=== PATIENT | male | born 1955 | race Caucasian/White ===

== ENCOUNTER 2017-06-25 07:39 | Day surgery (SDC) | payer OTHER ==
[~2017-06-25] VITALS: Ht 177.8 cm; Wt 106.7 kg
[~2017-06-25 07:39] MED LIST: ASCO500; ASPI81CH; ATOR20; CITA20; FISH OIL 1,0001 EAC1; LEVSOD125; LISI20; METF500; PIOG30
== END 2017-06-25 10:00 | disposition home or self-care (01) ==
LOC: ORSCSDS 07:39
PROVIDERS: Internal Medicine Gastroenterology
PROC: 0DBN8ZX Excision of Sigmoid Colon, Via Natural or Artificial Opening Endoscopic, Diagnostic (ICD-10-PCS; principal; 2017-06-25 09:00)
DX: Z12.11 Encounter for screening for malignant neoplasm of colon (principal); Z86.010 Personal history of colon polyps; K57.30 Diverticulosis of large intestine without perforation or abscess without bleeding; E11.9 Type 2 diabetes mellitus without complications; E78.5 Hyperlipidemia, unspecified; E03.9 Hypothyroidism, unspecified; F32.9 Major depressive disorder, single episode, unspecified; E66.01 Morbid (severe) obesity due to excess calories; Z68.35 Body mass index [BMI] 35.0-35.9, adult; Z87.891 Personal history of nicotine dependence; Z79.82 Long term (current) use of aspirin; Z79.84 Long term (current) use of oral hypoglycemic drugs; Z79.899 Other long term (current) drug therapy
CPT/HCPCS: 82947; 88305; J0330; J1980; J2405

== ENCOUNTER → 2021-08-03 | Outpatient (CLI) | payer BC ==
[2021-08-03 15:31] LABS: BASOPHILS ABSOLUTE AUTO 0.03 K/mm3 (0.00-0.23); BASOPHILS PERCENT AUTO 0 % (0-2); EOSINOPHILS PERCENT AUTO 1 % (0-6); Hematocrit 39.4 % (37.0-53.0); Hemoglobin 13.3 g/dL (13.5-17.5); IMMATURE GRAN ABSOLUTE AUTO 0.03 K/mm3 (0.00-0.10); IMMATURE GRAN PERCENT AUTO 0 % (0-1); LYMPHOCYTES ABSOLUTE AUTO 0.86 K/mm3 (0.84-5.20); LYMPHOCYTES PERCENT AUTO 8 % (21-46); MONOCYTES ABSOLUTE AUTO 1.22 K/mm3 (0.16-1.47); MONOCYTES PERCENT AUTO 11 % (4-13); Mean Corpuscular HGB 28.9 pg (26.0-34.0); Mean Corpuscular HGB Conc 33.8 g/dL (31.5-36.5); Mean Corpuscular Volume 86 fL (80-100); Mean Platelet Volume 8.4 fL (9.1-12.4); NEUTROPHILS ABSOLUTE AUTO 8.45 K/mm3 (1.96-9.15); NEUTROPHILS PERCENT AUTO 79 % (41-73); Platelet Count 568 K/mm3 (150-400); RDW Coefficient Variation 13.2 % (11.7-14.2); RDW Standard Deviation 41.2 fL (35.1-46.3); White Blood Cell Count 10.69 K/mm3 (4.00-11.30)
[2021-08-03 15:43] LABS: Bun/Creatinine Ratio 32.5 (12.0-20.0); Calcium, Blood 9.3 mg/dL (8.5-10.1); Creatinine, Blood 1.54 mg/dL (0.60-1.20); Potassium, Blood 4.5 mmol/L (3.5-5.5); Uric Acid, Blood 9.4 mg/dL (3.5-7.2)
== END | disposition home or self-care (01) ==
LOC: LAB 15:27 → LAB SHORT 15:27
PROVIDERS: Chiropractor
DX: M25.461 Effusion, right knee (principal)
CPT/HCPCS: 80048; 84550; 85025

== ENCOUNTER → 2021-08-23 | Outpatient (CLI) | payer BC ==
[2021-08-24 09:20] LABS: Stool Occult Bld Immuno 1 Negative (NEGATIVE)
== END | disposition home or self-care (01) ==
LOC: LAB 15:14 → LAB SHORT 15:14
PROVIDERS: Internal Medicine
DX: D53.9 Nutritional anemia, unspecified (principal)
CPT/HCPCS: 82274

== ENCOUNTER → 2022-03-18 | Outpatient (CLI) | payer OTHER | END | disposition home or self-care (01) | LOC: LAB 07:40 → LAB SHORT 07:40 → PLD 07:40 | DX: L60.2 Onychogryphosis (principal); B35.1 Tinea unguium | CPT/HCPCS: 88305; 88312 ==

== ENCOUNTER 2023-04-18 06:10 | Day surgery (SDC) | payer OTHER ==
[~2023-04-18] VITALS: Ht 177.8 cm; Wt 105.0 kg
[~2023-04-18 06:10] MED LIST changes: +ALLO100 PO; -ASPI81CH; +Aspir 8181 MG PO; -CITA20; +CITA20 PO; +LEVOTHYROXINE125 MC9 PO; -LEVSOD125; +Lisinopril2.5 MG; -METF500; +METF500 PO; +MOBIC15 MG PO
[2023-04-18] MEDS ORDERED: LISINOPRIL 30 MG (06:47)
--- NOTE | 2023-04-18 07:30 | NUR ---
04/18/23 0730 Lulú Estes TIMEOUT COMPLETED FOR NERVE BLOCK
--- NOTE | 2023-04-18 08:09 | NUR ---
04/18/23 0809 Ritu Adames FIRST DOSE OF TXA STARTED AT 0744.
[2023-04-18 10:32] VITALS: BP 129/71
== END 2023-04-18 11:20 | disposition home or self-care (01) ==
LOC: ORSCSDS 06:10
PROVIDERS: Podiatrist Foot & Ankle Surgery
PROC: 0SSF05Z Reposition Right Ankle Joint with External Fixation Device, Open Approach (ICD-10-PCS; principal; 2023-04-18 07:30)
PROC: 0L8N0ZZ Division of Right Lower Leg Tendon, Open Approach (ICD-10-PCS; principal; 2023-04-18 07:30)
PROC: 0MQQ0ZZ Repair Right Ankle Bursa and Ligament, Open Approach (ICD-10-PCS; principal; 2023-04-18 07:30)
DX: M19.071 Primary osteoarthritis, right ankle and foot (principal); I10 Essential (primary) hypertension; E03.9 Hypothyroidism, unspecified; E11.9 Type 2 diabetes mellitus without complications; E66.9 Obesity, unspecified; Z68.33 Body mass index [BMI] 33.0-33.9, adult; Z79.82 Long term (current) use of aspirin; Z79.84 Long term (current) use of oral hypoglycemic drugs; Z79.899 Other long term (current) drug therapy
CPT/HCPCS: 82947; C1713; C1776; J0171; J0690; J0735; J1100; J1885; J2001; J2250; J2405; J2704; J2795; J3010; J7120

== ENCOUNTER 2023-10-09 07:28 | Day surgery (SDC) | payer OTHER ==
[~2023-10-09] VITALS: Ht 177.8 cm; Wt 105.2 kg
[2023-10-09] VITALS (10 sets, daily range): BP systolic 45–134; BP diastolic 23–119
[~2023-10-09 07:28] MED LIST changes: -ATOR20; +ATOR20 PO; +LISINOPRIL 30 MG PO; +Lactated Ringer's 1,000 ML IV SCH
[2023-10-09] MEDS ORDERED: propofoL 40 ML IV ONE (08:41)
--- NOTE | 2023-10-09 08:41 | NUR ---
Ambulatory in Day Surgery. History, Chart, Medications and Allergies reviewed before start of procedure. Lungs clear T/O to Auscultation. Patient confirms NPO status and agrees with scheduled surgery. Patient States Post-Procedure ride home has been arranged.
--- NOTE | 2023-10-09 08:53 | NUR ---
10/09/23 0853 Dallas Albarran HISTORY, CHART, MEDICATIONS AND ALLERGIES REVIEWED BEFORE START OF PROCEDURE. PATIENT CONFIRMS NPO STATUS AND AGREES WITH SCHEDULED PROCEDURE. 3-LEAD EKG REVIEWED WITH PHYSICIAN PRIOR TO START OF PROCEDURE. MONITOR INTACT WITH CONTINUOUS PULSE OXIMETRY,CAPNOGRAPHY, 3-LEAD EKG, INTERMITTENT BP. SUPPLEMENTAL O2 TO BE TITRATED THROUGHOUT PROCEDURE TO MAINTAIN O2 SATURATION ABOVE 90%. PATIENT DETERMINED TO BE ASA APPROPRIATE FOR PROPOFOL SEDATION PRIOR TO START OF PROCEDURE BY DR. LEO.
--- NOTE | 2023-10-09 09:17 | NUR ---
PT TO DAY SURGERY STEP DOWN FROM COLONOSCOPY; BEDSIDE REPORT RECEIEVED. PT AWAKE, ALERT AND ORIENETED; ABLE TO MOVE SELF IN BED. VSS. PT HAS NO COMPLAINTS AT THIS TIME
--- NOTE | 2023-10-09 09:25 | NUR ---
Discharge instructions reviewed with patient. Patient verbalizes understanding. Copy given to patient to take home. Patient States Post-Procedure ride home has been arranged.
--- NOTE | 2023-10-09 09:40 | NUR ---
Patient up to Ambulate independently. Gait steady. Discharged via wheelchair to private car for ride home.
[2023-10-14] MEDS ORDERED: CALCIUM PO (13:56)
[2023-10-14] MEDS ORDERED: FISH OIL PO (13:56)
== END 2023-10-09 09:41 | disposition home or self-care (01) ==
LOC: ORSCMMR 07:28 → ORD 08:30 → ORSCMMR 09:41
PROVIDERS: Internal Medicine Gastroenterology
PROC: 0DBH8ZX Excision of Cecum, Via Natural or Artificial Opening Endoscopic, Diagnostic (ICD-10-PCS; principal; 2023-10-09 08:30)
PROC: 0DBK8ZX Excision of Ascending Colon, Via Natural or Artificial Opening Endoscopic, Diagnostic (ICD-10-PCS; principal; 2023-10-09 08:30)
PROC: 0DBM8ZX Excision of Descending Colon, Via Natural or Artificial Opening Endoscopic, Diagnostic (ICD-10-PCS; principal; 2023-10-09 08:30)
PROC: 0DBP8ZX Excision of Rectum, Via Natural or Artificial Opening Endoscopic, Diagnostic (ICD-10-PCS; principal; 2023-10-09 08:30)
DX: Z12.11 Encounter for screening for malignant neoplasm of colon (principal); Z86.010 Personal history of colon polyps; D12.0 Benign neoplasm of cecum; D12.2 Benign neoplasm of ascending colon; K63.5 Polyp of colon; K62.1 Rectal polyp; E11.9 Type 2 diabetes mellitus without complications; E78.00 Pure hypercholesterolemia, unspecified; I10 Essential (primary) hypertension; E03.9 Hypothyroidism, unspecified; F32.A Depression, unspecified; M10.9 Gout, unspecified; Z79.84 Long term (current) use of oral hypoglycemic drugs; Z79.899 Other long term (current) drug therapy
CPT/HCPCS: 82947; 88305; J2704; J7120

== ENCOUNTER 2024-05-20 06:07 | Day surgery (SDC) | payer OTHER ==
[2024-05-20] VITALS (12 sets, daily range): BP systolic 105–149; BP diastolic 62–105
[~2024-05-20] VITALS: Ht 177.8 cm; Wt 102.8 kg
[~2024-05-20 06:07] MED LIST changes: +CALCIUM CARBON500 M1 PO; +FISH OIL PO; -LISINOPRIL 30 MG PO; -Lactated Ringer's 1,000 ML IV SCH; +MULVITA PO; +TRULICITY3 MG/0.5 M SC; +Zestril30 MG PO
[2024-05-20] MEDS ORDERED: Ropivacaine 0.5% HCl/Pf 123.125 MG,EPINEPHrine HCL 0.25 MG,Ketorolac Tromethamine 15 MG... INFIL SCH (06:20)
[2024-05-20] MEDS ORDERED: OxyCODONE HCL 10 MG TABCR PO SCH (06:20)
[2024-05-20] MEDS ORDERED: Tranexamic Acid 1,000 MG in NS 100 ML IV SCH (06:20)
[2024-05-20] MEDS ORDERED: Acetaminophen 500 MG Tab PO SCH ×2 (06:20→08:00)
[2024-05-20] MEDS ORDERED: CeFAZolin Sodium 2,000 MG in NS 100 ML IV SCH ×2 (06:20→15:45)
[2024-05-20] MEDS ORDERED: Chlorhexidine Mouth Care 15 ML UDC MT SCH (06:20)
[2024-05-20] MEDS ORDERED: Lactated Ringer's 1,000 ML IV SCH ×2 (06:20→07:50)
--- NOTE | 2024-05-20 06:56 | NUR ---
INTO [facility]. PT REPORTS 04/30 LEFT HIP PAIN. HISTORY AND ALLERGIES REVIEWED.BP 141/105-PT HAS NOT TAKEN HIS LISINOPRIL SINCE 05/11/24.LUNGS CLEAR. NPO STATUS CONFIRMED.CHLOHEXIDINE SHOWER AND WIPE X 2.
[2024-05-20] MEDS ORDERED: CeFAZolin Sodium 2,000 MG VIAL ONE (07:01)
[2024-05-20] MEDS ORDERED: Midazolam HCl 1MG / ML 2ML Vial ONE (07:09)
[2024-05-20] MEDS ORDERED: FentaNYL Citrate 50 MCG/ML 2 ML Injection ONE (07:09)
[2024-05-20] MEDS ORDERED: Bupivacaine 0.75%/Dext 8.25% 2 ML Amp IT ONE (07:20)
[2024-05-20] MEDS ORDERED: propofoL 100 ML IV ONE (07:20)
[2024-05-20] MEDS ORDERED: Metoclopramide HCl 5MG / ML 2ML Vial IV PRN (07:45)
[2024-05-20] MEDS ORDERED: Prochlorperazine Edisylate 10 mg Vial IV PRN (07:50)
[2024-05-20] MEDS ORDERED: Ondansetron HCl 2 MG / ML 2ML Vial IV PRN (07:50)
[2024-05-20] MEDS ORDERED: Bisacodyl 10 MG Supp PR PRN (07:50)
[2024-05-20] MEDS ORDERED: OxyCODONE HCL 5 MG TAB PO PRN ×2 (07:50)
[2024-05-20] MEDS ORDERED: Magnesium Hydroxide Conc 10 ML UDC PO PRN (07:50)
[2024-05-20] MEDS ORDERED: HYDROmorphone HCl/Pf 1MG SYR IV PRN ×2 (07:55→08:50)
[2024-05-20] MEDS ORDERED: FLU VACC TS2024-25(6MOS UP)/PF 45 MCG/0.5 ML SYRINGE IM SCH (07:55)
[2024-05-20] MEDS ORDERED: Promethazine HCl 25 MG Tab PO PRN (07:55)
[2024-05-20] MEDS ORDERED: DiphenhydrAMINE HCL 25 MG Cap PO PRN (08:00)
[2024-05-20] MEDS ORDERED: Ondansetron HCl 2 MG / ML 2ML Vial ONE (08:07)
[2024-05-20] MEDS ORDERED: Dexamethasone Sod Phos 10 MG/ML 1ML VIAL ONE (08:07)
[2024-05-20] MEDS ORDERED: Phenylephrine HCl 100 MCG/ML-NS 10MLSYR (1MG/10ML) ONE (08:22)
[2024-05-20] MEDS ORDERED: FentaNYL Citrate 50 MCG/ML 2 ML Injection IV PRN ×3 (08:45→08:50)
[2024-05-20] MEDS ORDERED: Lisinopril 5 MG Tab PO SCH (09:00)
[2024-05-20] MEDS ORDERED: Citalopram Hydrobromide 20 MG Tab PO SCH (09:00)
[2024-05-20] MEDS ORDERED: Allopurinol 100 MG Tab PO SCH (09:00)
[2024-05-20] MEDS ORDERED: MetFORMIN HCl 500 mg PO SCH (09:00)
[2024-05-20] MEDS ORDERED: Calcium Carbonate 1,250 MG TABLET PO SCH (09:00)
[2024-05-20] MEDS ORDERED: Atorvastatin 10 MG Tab PO SCH (09:00)
[2024-05-20] MEDS ORDERED: Docusate Sodium 100 MG Cap PO SCH (09:00)
[2024-05-20] MEDS ORDERED: Multivitamins 1 Tab PO SCH (09:00)
--- NOTE | 2024-05-20 11:12 | NUR ---
POST OP S/P L NAYAN. SPINAL STILL INTACT AND PT HAS DECREASED SENSATION. CAP REFILL <3 SECONDS AND PEDAL PULSES STRONG BILAT. PT DENIES PAIN. AWAKE, ORIENTED, AND PLEASANT. L HIP WITH AQUACEL DRESSING IS [facility] WITH POLAR PACK IN PLACE. PT VIPUL SIPS OF WATER AND JELLO. VSS. AT BEDSIDE FOR SUPPORT. CALL LIGHT WITHIN REACH. PT EDUCATED ON TREATMENT PLAN AND VERBALIZED AN UNDERSTANDING.
[2024-05-20] MEDS ORDERED: Insulin Regular 100 UNIT/ML 10ML Vial SC SCH (11:30)
[2024-05-20] MEDS ORDERED: Ketorolac Tromethamine 15mg Vial IV SCH (12:00)
--- NOTE | 2024-05-20 16:44 | NUR ---
DISCHARGE PT AND EDUCATED ON AND RECEIVED PRINTED DISCHARGE INSTRUCTIONS AND VERBALIZED AN UNDERSTANDING. IV DC'D. PT CLEARED PHYSICAL THERAPY. VOIDING SPONTANEOUSLY, VIPUL PO, AND PAIN CONTROLLED. PT GIVEN EXTRA AQUACEL DRESSINGS AND REPORTS FILLING RX'S. PT GATHERING ALL PERSONAL BELONGINGS AND [facility].
[2024-05-21] MEDS ORDERED: Levothyroxine Sodium 0.125 MG Tab PO SCH (06:00)
[2024-05-21] MEDS ORDERED: Aspirin 81 MG Chew PO SCH (09:00)
[2024-05-26] MEDS ORDERED: Misc. Injectable SC SCH (08:20)
== END 2024-05-20 17:05 | disposition home or self-care (01) ==
LOC: ORSCMMR 06:07 → ORD 07:30 → ORSCMMR 07:30 → SURS 10:17 → ORSCMMR 17:05
PROVIDERS: Orthopaedic Surgery
PROC: 0SRB0JZ Replacement of Left Hip Joint with Synthetic Substitute, Open Approach (ICD-10-PCS; principal; 2024-05-20 07:30)
DX: M16.12 Unilateral primary osteoarthritis, left hip (principal); Z96.641 Presence of right artificial hip joint; I10 Essential (primary) hypertension; E11.9 Type 2 diabetes mellitus without complications; E03.9 Hypothyroidism, unspecified; Z79.84 Long term (current) use of oral hypoglycemic drugs; Z79.899 Other long term (current) drug therapy; Z79.82 Long term (current) use of aspirin; Z79.85 Long-term (current) use of injectable non-insulin antidiabetic drugs; E66.9 Obesity, unspecified; Z68.33 Body mass index [BMI] 33.0-33.9, adult
CPT/HCPCS: 72170; 82947; 97110; 97116; 97162; A9270; C1776; J0171; J0690; J0735; J1100; J1815; J1885; J2250; J2371; J2405; J2704; J2795; J3010; J7120

== ENCOUNTER 2024-07-30 09:32 | Day surgery (SDC) | payer OTHER ==
[~2024-07-30] VITALS: Ht 177.8 cm; Wt 103.1 kg
[~2024-07-30 09:32] MED LIST changes: +Bupivacaine 0.5% W/EPI 1:200000 SDV 30 ML Vial ONE; +Midazolam HCl 1MG / ML 2ML Vial ONE; +propofoL 20 ML IV ONE
[2024-07-30] MEDS ORDERED: CeFAZolin Sodium 2,000 MG VIAL ONE (09:48)
[2024-07-30] MEDS ORDERED: TRULICITY3 MG/0.5 M SQ (10:20)
[2024-07-30] MEDS ORDERED: Ondansetron HCl 2 MG / ML 2ML Vial ONE (10:32)
[2024-07-30] MEDS ORDERED: Dexamethasone Sod Phos 10 MG/ML 1ML VIAL ONE (10:32)
[2024-07-30] MEDS ORDERED: Ketorolac Tromethamine 30mg Vial ONE (10:32)
[2024-07-30] MEDS ORDERED: Lactated Ringer's 1,000 ML IV ONE ×2 (10:37→12:00)
[2024-07-30] MEDS ORDERED: FentaNYL Citrate 50 MCG/ML 2 ML Injection ONE (10:40)
[2024-07-30 11:28] VITALS: BP 124/82
--- NOTE | 2024-07-30 11:44 | NUR ---
07/30/24 1144 LOVELY QUISPE IN AT BEDSIDE. PT VERY TALKATIVE.
== END 2024-07-30 12:10 | disposition home or self-care (01) ==
LOC: ORSCSDS 09:32
PROVIDERS: Podiatrist Foot & Ankle Surgery
PROC: 0SGP04Z Fusion of Right Toe Phalangeal Joint with Internal Fixation Device, Open Approach (ICD-10-PCS; principal; 2024-07-30 10:45)
DX: M20.41 Other hammer toe(s) (acquired), right foot (principal); I10 Essential (primary) hypertension; E11.9 Type 2 diabetes mellitus without complications; E03.9 Hypothyroidism, unspecified; G47.33 Obstructive sleep apnea (adult) (pediatric); E66.9 Obesity, unspecified; Z68.32 Body mass index [BMI] 32.0-32.9, adult; Z79.84 Long term (current) use of oral hypoglycemic drugs; Z79.899 Other long term (current) drug therapy; Z79.82 Long term (current) use of aspirin
CPT/HCPCS: 82947; C1713; J0690; J1100; J1885; J2250; J2405; J2704; J3010; J7120

== ENCOUNTER → 2024-09-08 | Outpatient (CLI) | payer OTHER ==
[~2024-09-08] MED LIST changes: -Bupivacaine 0.5% W/EPI 1:200000 SDV 30 ML Vial ONE; -Midazolam HCl 1MG / ML 2ML Vial ONE; +TRULICITY3 MG/0.5 M SQ; -propofoL 20 ML IV ONE
[2024-09-08 15:09] LABS: Microalb/Creat Ratio UR, Rand 18.177 mg/g (0.000-30.000); Microalbumin, Random Urine 36.9 mg/L (0.000-20.000)
== END ==
LOC: LAB SHORT 12:00 → LAB 12:00
PROVIDERS: Internal Medicine
DX: E11.69 Type 2 diabetes mellitus with other specified complication (principal); E78.2 Mixed hyperlipidemia
CPT/HCPCS: 82043; 82570

== ENCOUNTER → 2024-09-17 | Outpatient (CLI) | payer OTHER ==
[~2024-09-17] MED LIST changes: +Amoxicillin500 MG PO; +Ketoconazole15 GM TP; +LISINOPRIL2.5 MG PO; +OXAYDO5 M1 PO; -TRULICITY3 MG/0.5 M SQ
[2024-09-17 09:01] LABS: BASOPHILS ABSOLUTE AUTO 0.04 K/mm3 (0.00-0.23); BASOPHILS PERCENT AUTO 0 % (0-2); EOSINOPHILS PERCENT AUTO 0 % (0-6); Hematocrit 41.8 % (37.0-53.0); Hemoglobin 13.7 g/dL (13.5-17.5); IMMATURE GRAN PERCENT AUTO 1 % (0-1); LYMPHOCYTES ABSOLUTE AUTO 1.11 K/mm3 (0.84-5.20); LYMPHOCYTES PERCENT AUTO 7 % (21-46); MONOCYTES PERCENT AUTO 7 % (4-13); Mean Corpuscular HGB 26.1 pg (26.0-34.0); Mean Corpuscular HGB Conc 32.8 g/dL (31.5-36.5); Mean Corpuscular Volume 80 fL (80-100); Mean Platelet Volume 9.3 fL (9.1-12.4); NEUTROPHILS ABSOLUTE AUTO 14.63 K/mm3 (1.96-9.15); NEUTROPHILS PERCENT AUTO 86 % (41-73); Platelet Count 305 K/mm3 (150-400); RDW Coefficient Variation 16.8 % (11.7-14.2); RDW Standard Deviation 47.5 fL (35.1-46.3); Red Blood Cell Count 5.24 M/mm3 (4.30-5.90); White Blood Cell Count 16.98 K/mm3 (4.00-11.30)
[2024-09-17 09:11] LABS: Albumin, Blood 3.7 g/dL (3.4-5.0); Albumin/Globulin Ratio 0.9 (0.8-1.8); Bilirubin, Total 0.7 mg/dL (0.1-1.0); Bun/Creatinine Ratio 21.3 (12.0-20.0); Calcium, Blood 9.1 mg/dL (8.5-10.1); Creatinine, Blood 1.41 mg/dL (0.60-1.20); Globulin, Blood 4.2 g/dL (2.2-4.0); Potassium, Blood 4.1 mmol/L (3.5-5.5); Total Protein, Blood 7.9 g/dL (6.4-8.2)
== END | disposition home or self-care (01) ==
LOC: LAB SHORT 08:55 → LAB 08:55
PROVIDERS: Emergency Medicine
DX: R50.9 Fever, unspecified (principal)
CPT/HCPCS: 80053; 83605; 85025; 87040